=== PATIENT | female | born 1945 | race Caucasian/White ===

== ENCOUNTER 2020-11-12 08:33 | Day surgery (SDC) | payer MEDICARE, OTHER ==
[~2020-11-12] VITALS: Ht 165.1 cm; Wt 52.7 kg
[2020-11-12 08:53] LABS: BASOPHILS 0.1 % (0-2); EOSINOPHILS 0.2 % (0-7); HEMATOCRIT 31.3 % (36.0-48.0); HEMOGLOBIN 9.9 g/dL (12-16); IMMATURE GRANULOCYTES 1.1 % (0-5); LYMPHOCYTE ABS# 1.32 10x3/uL (1.18-3.74); MCH 29.1 pg (26.0-34.0); MCHC 31.6 g/dL (31.0-37.0); MCV 92.1 fL (80.0-100.0); MEAN PLATELET VOLUME 9.3 fL (7.4-10.4); MONOCYTES 11.5 % (2-11); NEUTROPHIL ABS# 9.18 10x3/uL (1.56-6.13); NEUTROPHILS 76.1 % (40-80); PLATELET COUNT 326 10x3/uL (130-400); RDW 15.8 % (11.5-14.5); WBC 12.1 10x3/uL (4.8-10.8)
[2020-11-12 09:01] LABS: ANION GAP 12.1 mmol/L (8-16); CALCIUM 9.1 mg/dL (8.5-10.1); CREATININE - SERUM 0.8 mg/dL (0.6-1.3); POTASSIUM - SERUM 4.1 mmol/L (3.5-5.1)
[2020-11-12] MEDS ORDERED: HYDROCODON-ACE1 EA10 PO (09:21)
[2020-11-12] MEDS ORDERED: FENTANYL1 EAC5 TRANSDERM (09:21)
[2020-11-12] MEDS ORDERED: BACTRIM DS TAB1 EAC1 PO (09:22)
[2020-11-12] MEDS ORDERED: SYNTHROID75 MCG PO (09:22)
[2020-11-12] MEDS ORDERED: PROTONIX40 MG PO (09:22)
[2020-11-12] MEDS ORDERED: TEMAZEPAM30 MG PO (09:23)
[2020-11-12] MEDS ORDERED: CO Q-10200 MG PO (09:24)
[2020-11-12] MEDS ORDERED: VITAMIN B-121000 MCG PO (09:24)
[2020-11-12] MEDS ORDERED: VITAMIN B-6100 MG PO (09:24)
[2020-11-12] MEDS ORDERED: FOLIC ACID0.8 MG PO (09:25)
[2020-11-12] MEDS ORDERED: VITAMIN D325 MC1 PO (09:25)
[2020-11-12] MEDS ORDERED: PROBIOTIC BLEN1 EACH (09:25)
[2020-11-12] MEDS ORDERED: CENTRUM SILVER1 EAC3 PO (09:26)
[2020-11-12 09:34] VITALS: BP 119/64; Ht 165.1 cm; Wt 52.7 kg
--- NOTE | 2020-11-12 11:08 | NUR ---
1105 IV DC'D. CATHETER TIP INTACT. PRESSURE APPLIED UNTIL BLEEDING CEASED. NO REDNESS OR SWELLING AT IV SITE. COBAN DRESSING APPLIED. DISCHARGE INSTRUCTIONS REVIEWED WITH PT AND HER . BOTH VOICE UNDERSTANDING OF THESE INSTRUCTIONS.
--- NOTE | 2020-11-14 07:53 | OP ---
PATIENT NAME: SHERIN KHALIL MEDICAL RECORD: [id number] :49 LOCATION:[facility] ADMISSION DATE: SURGEON: JOSE STEWART DO DATE OF OPERATION: 11/12/2020 PROCEDURE: EGD with biopsies and balloon dilation. INDICATION FOR PROCEDURE: Epigastric pain, abnormal weight loss and dysphagia. SCOPE: Olympus video gastroscope. MEDICATIONS: Propofol 70 mg IV per anesthesia. ESTIMATED BLOOD LOSS: Minimal. COMPLICATIONS: None. FINDINGS AND DESCRIPTION OF PROCEDURE: Informed consent was given. The patient was made comfortable with the above medication. After reaching an adequate level of sedation by slow IV push, the patient was placed on her left side. The endoscope was advanced under direct visualization through the mouth to the second portion of the duodenum with ease. Throughout the entire esophagus, there was pkrswvis-pw-wyqdgk esophageal candidiasis. A single cold forceps biopsies was taken from the mid esophagus. 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 A CRE dilating balloon was used at this site with a dilation up to 18-mm maximum diameter successfully. The endoscope was advanced beyond the GE junction into the stomach and retroflexed to view the cardia and fundus, which appeared normal. The body of the stomach as well as the antrum also appeared normal. Cold forceps biopsies were taken from the antrum and incisura to submit for histopathology and to rule out the presence of H. pylori. The endoscope was advanced beyond the pylorus into the duodenum, which appeared normal to the second portion. The endoscope was then withdrawn from the patient. The patient tolerated the procedure well and there were no complications. IMPRESSION: 1. Haweapgu-sz-uxxxsb esophageal candidiasis. 2. LA class A reflux-induced esophagitis. 3. 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 4. Normal gastric and duodenal mucosa. PLAN AND RECOMMENDATIONS: 1. Discharge home when recovery parameters are met. 2. Follow up biopsy specimen results. 3. GERD diet and reflux precautions. 4. Continue current medications. 5. We will treat esophageal candidiasis with oral fluconazole for a total of 21 days. 6. Notify the GI clinic if symptoms worsen or fail to improve. TRANSINT:[id number] Voice Confirmation ID: [id number] DOCUMENT ID: [id number] OPERATIVE REPORT [id number] REMISHERIN PATRICIA NATHAN A DO at 0753 CC: [id number] DICTATION DATE: 11/12/20 1027 PRODUCT MANAGER MEDICAL DEVICE: 11/12/[address] [facility] 11/12/20 [facility] [address] [place] [address]
== END 2020-11-12 11:20 | disposition home or self-care (01) ==
LOC: D.OPS 08:33
PROVIDERS: ATTEND Internal Medicine Gastroenterology
DX: R10.13 Epigastric pain (principal); R13.10 Dysphagia, unspecified; R63.4 Abnormal weight loss; B37.81 Candidal esophagitis; K21.00 Gastro-esophageal reflux disease with esophagitis, without bleeding